=== PATIENT | male | born 1965 | race Caucasian/White ===

== ENCOUNTER 2018-09-10 10:58 | Inpatient (IN) | payer OTHER ==
[2018-09-10 11:23] VITALS: BMI 24.2
--- NOTE | 2018-09-10 14:07 | HP ---
CIWA Score - Admission Criteria [facility] Guidelines: Admission for Medically Managed Detox: Requires at least one of the followin. CIWA greater than 12 2. Seizures within the past 24 hours 3. Delirium tremens within the past 24 hours 4. Hallucinations within the past 24 hours 5. Acute intervention needed for co occurring medical disorder 6. Acute intervention needed for co occurring psychiatric disorder 7. Severe withdrawal that cannot be handled at a lower level of care (continued vomiting, continued diarrhea, abnormal vital signs) requiring intravenous medication and/or fluids 8. Admission ROS S - HPI Chief Complaint: " I want to recover this stuff" Allergies/Adverse Reactions: Allergies Allergy/AdvReac Type Severity Reaction Status Date / Time No Known Allergies Allergy Verified 09/10/18 11:56 History of Present Illness: 52 yo with hx of nicotine, cocaine and heroin dependence is here seeking cocaine rehabilitation. [facility] on methadone maintenance 50 mg qd , last medicated today. PMHX: HIV. Psych: depression, anxiety, bipolar. Denies suicidal / homicidal ideation. Denies hx of overdose, seizures or blackouts. Denies any significant period of sobriety . Exam Limitations: No Limitations - Ebola screening Have you traveled outside of the country in the last 21 days: No Have you had contact with anyone from an Ebola affected area: No Have you been sick,other than usual withdrawal symptoms: No Do you have a fever: No - Review of Systems Constitutional: Changes in sleep, Other (fatigue) EENT: reports: No Symptoms Reported Respiratory: reports: No Symptoms reported Cardiac: reports: No Symptoms Reported GI: reports: Indigestion : reports: No Symptoms Reported Musculoskeletal: reports: No Symptoms Reported Integumentary: reports: No Symptoms Reported Neuro: reports: No Symptoms reported Endocrine: reports: Increased Thirst Hematology: reports: No Symptoms Reported Psychiatric: reports: No Sypmtoms Reported, Orientated x3, Depressed Other Systems: Reviewed and Negative Patient History - Patient Medical History Hx Anemia: No Hx Asthma: No Hx Chronic Obstructive Pulmonary Disease (COPD): No Hx Cancer: No Hx Cardiac Disorders: No Hx Congestive Heart Failure: No Hx Hypertension: No Hx Hypercholesterolemia: No Hx Pacemaker: No HX Cerebrovascular Accident: No Hx Seizures: No Hx Dementia: No Hx Diabetes: No Hx Gastrointestinal Disorders: No Hx Liver Disease: No Hx Genitourinary Disorders: No Hx Sexually Transmitted Disorders: No Hx Renal Disease (ESRD): No Hx Thyroid Disease: No Hx Human Immunodeficiency Virus (HIV): Yes (dx 1993 Genvoya ) Hx Hepatitis C: No Hx Depression: Yes Hx Suicide Attempt: No Hx Bipolar Disorder: Yes Hx Schizophrenia: No - Patient Surgical History Past Surgical History: No - PPD History Previous Implant?: Yes Documented Results: Negative w/o proof Implanted On Prior [facility] Admission?: No PPD to be Administered?: Yes - Smoking Cessation Smoking history: Current every day smoker Have you smoked in the past 12 months: Yes Aproximately how many cigarettes per day: 6 Hx Chewing Tobacco Use: No Initiated information on smoking cessation: Yes 'Breaking Loose' booklet given: 09/10/18 - Substance & Tx. History Hx Alcohol Use: Yes Hx Substance Use: Yes Substance Use Type: Cocaine, Heroin Hx Substance Use Treatment: Yes (Last detox and rehab at [facility] four months ago ) - Substances Abused Heroin Route: Inhalation Frequency: Daily Amount used: 4-5 BAGS Age of first use: 17 Date of Last Use: 09/09/18 Cocaine Route: Inhalation Frequency: Daily Amount used: $20 Age of first use: 14 Date of Last Use: 09/09/18 Family Disease History - Family Disease History Family History: Denies Admission Physical Exam S - Vital Signs Vital Signs: Vital Signs - 24 hr 09/10/18 11:19 Temperature 98.8 F Pulse Rate 58 L Respiratory 18 Rate Blood Pressure 114/71 - Physical General Appearance: Yes: Appropriately Dressed, Thin, Anxious HEENTM: Yes: EOMI, Hearing grossly Normal, Normal ENT Inspection, Normocephalic , Normal Voice, ENRICO, Pharynx Normal, Tm's normal Respiratory: Yes: Within Normal Limits Neck: Yes: Within Normal Limits Breast: Yes: Breast Exam Deferred Cardiology: Yes: Regular Rhythm, Regular Rate Abdominal: Yes: Normal Bowel Sounds, Non Tender, Flat, Soft Genitourinary: Yes: Within Normal Limits Back: Yes: Normal Inspection Musculoskeletal: Yes: full range of Motion, Gait Steady, Pelvis Stable Extremities: Yes: Normal Capillary Refill, Normal Inspection, Normal Range of Motion, Non-Tender Neurological: Yes: college intern II-XII NML intact, Fully Oriented, Alert, Motor Strength 5/5, Depressed Affect Integumentary: Yes: Normal Color, Dry, Warm Lymphatic: Yes: Within Normal Limits - Diagnostic (1) Cocaine dependence Current Visit: Yes Status: Acute Qualifiers: Substance use status: uncomplicated Qualified Code(s): F14.20 - Cocaine dependence, uncomplicated (2) HIV (human immunodeficiency virus infection) Current Visit: Yes Status: Chronic (3) Opioid dependence on agonist therapy Current Visit: Yes Status: Acute [facility] qd, dose pending verification [facility] Breath Alcohol Content Breath Alcohol Content: 0 Urine Drug Screen - Results Drug Screen Negative: No Urine Drug Screen Results: INNA-Cocaine, OPI-Opiates, MTD-Methadone, FEN-Fentanyl Inpatient Rehab Admission - Rehab Decision to Admit Inpatient rehab admission?: Yes - Initial Determination Are CD services needed?: Yes Free of communicable disease: Yes Not in need of hospitalization: Yes - Rehab Admission Criteria Previous failed treatment: Yes Poor recovery environment: Yes Comorbidities: Yes Lacks judgement: Yes Patient is meeting Inpatient Rehab admission criteria:: Yes
[2018-09-10] MEDS ORDERED: MAGNESIUM CITRATE 300 ML BOTTLE PO PRN (14:08)
[2018-09-10] MEDS ORDERED: MAG HYDROX/AL HYDROX/SIMETH 30 ML UNIT-DOSE CUP PO PRN (14:08)
[2018-09-10] MEDS ORDERED: hydrOXYzine PAMOATE 25 MG CAPSULE (FP) PO PRN (14:08)
[2018-09-10] MEDS ORDERED: MAGNESIUM HYDROX 2400MG/30ML ORAL SUSPENSION 30 ML CUP PO PRN (14:08)
[2018-09-10] MEDS ORDERED: guaiFENesin 200 MG/10 ML 10 ML UNIT-DOSE CUPS PO PRN (14:08)
[2018-09-10] MEDS ORDERED: MENTHOL/PHENOL 1 EACH UD MM PRN (14:08)
[2018-09-10] MEDS ORDERED: LOPERAMIDE HCL 2 MG CAPSULE PO PRN (14:08)
[2018-09-10] MEDS ORDERED: ACETAMINOPHEN 325 MG TABLET (FP) PO PRN (14:08)
[2018-09-10] MEDS ORDERED: P-EPHED 60MG/TRIPROLIDI 2.5MG TABLET PO PRN (14:08)
[2018-09-10] MEDS ORDERED: TUBERCULIN PPD 5 TU/0.1ML VIAL ID ONE (16:51)
[2018-09-10] MEDS: NICOTINE POLACRILEX 2 MG GUM BUC PRN (19:04)
[2018-09-10] MEDS: THIAMINE HCL 100 MG TABLET (FP) PO SCH (21:28)
[2018-09-10] MEDS: MELATONIN 5 MG TABLETS PO PRN (21:29)
[2018-09-11 01:46] LABS: URINE APPEARANCE SLCLOUDY; URINE BILIRUBIN NEGATIVE (<2.0 mg/dL); URINE COLOR YELLOW; URINE GLUCOSE (UA) NEGATIVE (NEGATIVE); URINE KETONE NEGATIVE (NEGATIVE); URINE LEUK ESTERASE 3+ (NEGATIVE); URINE NITRITE NEGATIVE (NEGATIVE); URINE PROTEIN NEGATIVE (NEGATIVE); URINE UROBILINOGEN NEGATIVE mg/dL (0.2-1.0)
[2018-09-11 01:54] LABS: EPI CELLS MANY /HPF (FEW); URINE MUCUS RARE
[2018-09-11] MEDS: NICOTINE POLACRILEX 2 MG GUM BUC PRN ×5 (06:58→22:07)
[2018-09-11] MEDS ORDERED: METHADONE HCL 10 MG TABLET PO SCH (07:45)
[2018-09-11] MEDS ORDERED: METHADONE HCL 10 MG TABLET ONE (07:48)
[2018-09-11] MEDS ORDERED: METHADONE HCL 40 MG DISPERSABLE TABLET ONE (07:49)
[2018-09-11] MEDS: METHADONE 40 MG, METHADONE 10 MG PO SCH (08:00)
--- NOTE | 2018-09-11 08:45 | CONSULT ---
[facility] Psychiatric Consult - Data Date of interview: 09/11/18 Admission source: [facility] Identifying data: Patient is a 52 year old divorce male, father of three, unemployed, domiciled and is supported by [facility]. This is patient's first admission to detox at [facility]. Patient admitted to for cocaine dependence. Substance Abuse History: Smoking Cessation. Smoking history: Current every day smoker. Have you smoked in the past 12 months: Yes. Aproximately how many cigarettes per day: 6. Hx Chewing Tobacco Use: No. Initiated information on smoking cessation: Yes. 'Breaking Loose' booklet given: 09/10/18. - Substance & Tx. History. Hx Alcohol Use: Yes. Hx Substance Use: Yes. Substance Use Type : Cocaine, Heroin. Hx Substance Use Treatment: Yes (Last detox and rehab at [facility] four months ago ). - Substances Abused. Heroin. Route: Inhalation. Frequency: Daily. Amount used: 4-5 BAGS. Age of first use: 17. Date of Last Use: 09/09/18. Cocaine. Route: Inhalation. Frequency: Daily. Amount used: $20. Age of first use: 14 Medical History: HIV Psychiatric History: Patient's first psychiatric contact was in 2014 to address depression secondary to the of his who in 1999. He reports having difficulty greiving throughout the years and thought it was best he saw a psychiatrist. Mr. Delgado was prescribed an antidepressant medication but discontinued treatment after one year. Patient denies current outpatient psychiatric care, h/o psychiatric hosipitalizations and suicide attempt. Mr. Delgado is currently in the methadone program at [facility] and is on 50mg of methadone maintenance. At present patient is tearful. He reports amotivation , hopelessness, difficulty concentrating, and insomnia. Patient denies thoughts or urges to hurt self others. No psychosis noted. Physical/Sexual Abuse/Trauma History: denies. Mental Status Exam - Mental Status Exam Alert and Oriented to: Time, Place, Person Cognitive Function: Good Patient Appearance: Well Groomed Mood: Sad Affect: Mood Congruent Patient Behavior: Crying (Tearful), Appropriate, Cooperative Speech Pattern: Appropriate Voice Loudness: Normal Thought Process: Intact, Goal Oriented Thought Disorder: Not Present Hallucinations: Denies Suicidal Ideation: Denies Homicidal Ideation: Denies Insight/Judgement: Poor Sleep: Poorly Appetite: Fair Muscle strength/Tone: Normal Gait/Station: Normal Psychiatric Findings - Problem List ([place] 1, 2,3) (1) Depressive disorder Current Visit: Yes Status: Acute (2) Cocaine dependence Current Visit: Yes Status: Acute Qualifiers: Substance use status: uncomplicated Qualified Code(s): F14.20 - Cocaine dependence, uncomplicated (3) Opioid dependence on agonist therapy Current Visit: Yes Status: Acute Comment: [facility] on methadone mainace 50 mg qd, dose pending verification (4) Substance-induced sleep disorder Current Visit: Yes Status: Acute - Initial Treatment Plan Initial Treatment Plan: Psychoeducation provided. Detoxification in progress. Will initiate mirtazapine 15mg qhs. Benefits and side effects discussed. Verbal consent given.
[2018-09-11] MEDS: PRENATAL VITAMINS W/ FOLIC ACID TABLET (FP) PO SCH (10:14)
[2018-09-11] MEDS: NICOTINE 14 MG/24 HOURS TOPICAL PATCH TD SCH (10:14)
[2018-09-11 10:28] LABS: HEMATOCRIT 38.1 % (35.4-49); HEMOGLOBIN 12.8 GM/dL (11.7-16.9); MCH 28.4 pg (25.7-33.7); MCHC 33.6 g/dl (32.0-35.9); MEAN CELL VOLUME 84.6 fl (80-96); MEAN PLT VOLUME 8.8 fl (7.5-11.1); PLATELET COUNT 236 K/MM3 (134-434); RDW 15.2 % (11.9-15.9); WHITE BLOOD COUNT 8.2 K/mm3 (4.0-10.0)
[2018-09-11 10:30] LABS: ALBUMIN 3.7 g/dl (3.4-5.0); ALK PHOS 74 U/L (45-117); ANION GAP 3 MMOL/L (8-16); BILIRUBIN,TOTAL 0.3 mg/dL (0.2-1); BLOOD UREA NITROGEN 16 mg/dL (7-18); CALCIUM 8.6 mg/dL (8.5-10.1); CHLORIDE 107 mmol/L (98-107); CO2 29 mmol/L (21-32); CREATININE 0.9 mg/dL (0.55-1.3); GLUCOSE,RANDOM 80 mg/dL (74-106); POTASSIUM 4.5 mmol/L (3.5-5.1); SGOT/AST 19 U/L (15-37); SGPT/ALT 21 U/L (13-61); SODIUM 139 mmol/L (136-145); TOT PROT 7.3 g/dl (6.4-8.2)
[2018-09-11] MEDS: THIAMINE HCL 100 MG TABLET (FP) PO SCH (21:26)
[2018-09-11] MEDS: MIRTAZAPINE 15 MG TABLET (FP) PO SCH (21:26)
[2018-09-11] MEDS: MELATONIN 5 MG TABLETS PO PRN (21:27)
[2018-09-12] MEDS ORDERED: METHADONE HCL 10 MG TABLET ONE (04:01)
[2018-09-12] MEDS ORDERED: METHADONE HCL 40 MG DISPERSABLE TABLET ONE (04:02)
[2018-09-12] MEDS: METHADONE 40 MG, METHADONE 10 MG PO SCH (06:39)
[2018-09-12] MEDS: NICOTINE POLACRILEX 2 MG GUM BUC PRN ×5 (06:41→20:14)
[2018-09-12] MEDS: PRENATAL VITAMINS W/ FOLIC ACID TABLET (FP) PO SCH (10:14)
[2018-09-12] MEDS: NICOTINE 14 MG/24 HOURS TOPICAL PATCH TD SCH (10:14)
--- NOTE | 2018-09-12 12:46 | PN ---
[facility] Progress Note Note: PT STATES HE IS CURRENTLY ON GENVOYA AND COMPLIANT. PT'S LAST POSTED PICKED UP MEDICATION FROM HIS HOME [facility]Z PHARMACY WAS 08/19/18. PT REPORTS HE FORGOT TO TAKE THE BOTTLE WITH HIM WHEN COMING INTO ADMISSION AND WOULD LIKE TO CONTINUE. PT WILL NOT NEED COURTESY RX AT DISCHARGE. WILL FOLLOW UP WITH PCP/REFILLS AT HIS PHARMACY. ALERT O X 3. Vital Signs - 24 hr 09/12/18 09/12/18 03:30 06:54 Temperature 97.6 F Pulse Rate 60 Respiratory 18 17 Rate Blood Pressure 109/73 Laboratory Tests 09/10/18 09/11/18 09/11/18 22:30 06:00 06:00 WBC 8.2 RBC 4.50 Hgb 12.8 Hct 38.1 MCV 84.6 MCH 28.4 MCHC 33.6 RDW 15.2 Plt Count 236 MPV 8.8 Sodium 139 Potassium 4.5 Chloride 107 Carbon Dioxide 29 Anion Gap 3 L BUN 16 Creatinine 0.9 Creat Clearance w eGFR > 60 Random Glucose 80 Calcium 8.6 Total Bilirubin 0.3 AST 19 ALT 21 Alkaline Phosphatase 74 Total Protein 7.3 Albumin 3.7 Urine Color Yellow Urine Appearance Slcloudy Urine pH 6.0 Ur Specific [place] 1.026 Urine Protein Negative Urine Glucose (UA) Negative Urine Ketones Negative Urine Blood Negative Urine Nitrite Negative Urine Bilirubin Negative Urine Urobilinogen Negative Ur Leukocyte Esterase 3+ H Urine WBC (Auto) 131 Urine RBC (Auto) 4 Ur Epithelial Cells Many Urine Mucus Rare RPR Titer 09/11/18 06:00 WBC RBC Hgb Hct MCV MCH MCHC RDW Plt Count MPV Sodium Potassium Chloride Carbon Dioxide Anion Gap BUN Creatinine Creat Clearance w eGFR Random Glucose Calcium Total Bilirubin AST ALT Alkaline Phosphatase Total Protein Albumin Urine Color Urine Appearance Urine pH Ur Specific [place] Urine Protein Urine Glucose (UA) Urine Ketones Urine Blood Urine Nitrite Urine Bilirubin Urine Urobilinogen Ur Leukocyte Esterase Urine WBC (Auto) Urine RBC (Auto) Ur Epithelial Cells Urine Mucus RPR Titer Nonreactive UA NOTED. PT ASYMPTOMATIC PLAN:REPEAT UA AND UC R/O UTI INCREASE PO FLUIDS
[2018-09-12 20:31] LABS: URINE APPEARANCE SLCLOUDY; URINE BILIRUBIN NEGATIVE (<2.0 mg/dL); URINE COLOR YELLOW; URINE GLUCOSE (UA) NEGATIVE (NEGATIVE); URINE KETONE NEGATIVE (NEGATIVE); URINE LEUK ESTERASE 3+ (NEGATIVE); URINE NITRITE NEGATIVE (NEGATIVE); URINE PROTEIN NEGATIVE (NEGATIVE); URINE UROBILINOGEN NEGATIVE mg/dL (0.2-1.0)
[2018-09-12 20:51] LABS: URINE MUCUS RARE
[2018-09-12] MEDS: MIRTAZAPINE 15 MG TABLET (FP) PO SCH (21:56)
[2018-09-12] MEDS: THIAMINE HCL 100 MG TABLET (FP) PO SCH (21:56)
[2018-09-12] MEDS: ELVITEG/COB/EMTRI/TENOF (GENVOYA) TABLET (NF) PO SCH (21:57)
[2018-09-13] MEDS ORDERED: METHADONE HCL 10 MG TABLET ONE (04:36)
[2018-09-13] MEDS ORDERED: METHADONE HCL 40 MG DISPERSABLE TABLET ONE (04:36)
[2018-09-13] MEDS: METHADONE 40 MG, METHADONE 10 MG PO SCH (06:18)
[2018-09-13] MEDS: NICOTINE POLACRILEX 2 MG GUM BUC PRN ×5 (06:19→20:25)
[2018-09-13] MEDS: PRENATAL VITAMINS W/ FOLIC ACID TABLET (FP) PO SCH (10:11)
[2018-09-13] MEDS: NICOTINE 14 MG/24 HOURS TOPICAL PATCH TD SCH (10:11)
[2018-09-13] MEDS: ELVITEG/COB/EMTRI/TENOF (GENVOYA) TABLET (NF) PO SCH (21:36)
[2018-09-13] MEDS: THIAMINE HCL 100 MG TABLET (FP) PO SCH (21:36)
[2018-09-13] MEDS: MIRTAZAPINE 15 MG TABLET (FP) PO SCH (21:36)
[2018-09-14] MEDS ORDERED: METHADONE HCL 10 MG TABLET ONE (04:10)
[2018-09-14] MEDS ORDERED: METHADONE HCL 40 MG DISPERSABLE TABLET ONE (04:10)
[2018-09-14] MEDS: NICOTINE POLACRILEX 2 MG GUM BUC PRN ×4 (06:11→21:29)
[2018-09-14] MEDS: METHADONE 40 MG, METHADONE 10 MG PO SCH (06:12)
[2018-09-14] MEDS: PRENATAL VITAMINS W/ FOLIC ACID TABLET (FP) PO SCH (10:34)
[2018-09-14] MEDS: NICOTINE 14 MG/24 HOURS TOPICAL PATCH TD SCH (10:34)
[2018-09-14] MEDS: MIRTAZAPINE 15 MG TABLET (FP) PO SCH (21:29)
[2018-09-14] MEDS: ELVITEG/COB/EMTRI/TENOF (GENVOYA) TABLET (NF) PO SCH (21:29)
[2018-09-14] MEDS: THIAMINE HCL 100 MG TABLET (FP) PO SCH (21:29)
[2018-09-15] MEDS ORDERED: METHADONE HCL 10 MG TABLET ONE (03:19)
[2018-09-15] MEDS ORDERED: METHADONE HCL 40 MG DISPERSABLE TABLET ONE (03:19)
[2018-09-15] MEDS: METHADONE 40 MG, METHADONE 10 MG PO SCH (06:22)
[2018-09-15] MEDS: NICOTINE POLACRILEX 2 MG GUM BUC PRN ×3 (06:24→17:25)
[2018-09-15] MEDS: NICOTINE 14 MG/24 HOURS TOPICAL PATCH TD SCH (10:24)
[2018-09-15] MEDS: PRENATAL VITAMINS W/ FOLIC ACID TABLET (FP) PO SCH (10:25)
--- NOTE | 2018-09-15 11:42 | PN ---
[facility] Progress Note Note: NURSE NICOLE REPORTS TO ALTERNATIVE ENERGY ENGINEER THAT PT IS REQUESTING FOR PSYCH RE:EVAL FOR DEPRESSION/ANGER. DENIED S/H/I. Vital Signs (72 hours) 09/13/18 09/13/18 09/13/18 00:30 03:30 06:56 Temperature 97.6 F Pulse Rate 59 L Respiratory 18 18 17 Rate Blood Pressure 96/66 09/14/18 09/14/18 09/14/18 00:30 03:30 06:54 Temperature 97.9 F Pulse Rate 69 Respiratory 18 18 18 Rate Blood Pressure 106/72 09/15/18 09/15/18 09/15/18 00:30 03:30 07:11 Temperature 97.5 F L Pulse Rate 60 Respiratory 18 18 18 Rate Blood Pressure 127/71 Laboratory Tests 09/10/18 09/11/18 09/11/18 22:30 06:00 06:00 WBC 8.2 RBC 4.50 Hgb 12.8 Hct 38.1 MCV 84.6 MCH 28.4 MCHC 33.6 RDW 15.2 Plt Count 236 MPV 8.8 Sodium 139 Potassium 4.5 Chloride 107 Carbon Dioxide 29 Anion Gap 3 L BUN 16 Creatinine 0.9 Creat Clearance w eGFR > 60 Random Glucose 80 Calcium 8.6 Total Bilirubin 0.3 AST 19 ALT 21 Alkaline Phosphatase 74 Total Protein 7.3 Albumin 3.7 Urine Color Yellow Urine Appearance Slcloudy Urine pH 6.0 Ur Specific [place] 1.026 Urine Protein Negative Urine Glucose (UA) Negative Urine Ketones Negative Urine Blood Negative Urine Nitrite Negative Urine Bilirubin Negative Urine Urobilinogen Negative Ur Leukocyte Esterase 3+ H Urine WBC (Auto) 131 Urine RBC (Auto) 4 Ur Epithelial Cells Many Urine Mucus Rare RPR Titer 09/11/18 09/12/18 06:00 19:11 WBC RBC Hgb Hct MCV MCH MCHC RDW Plt Count MPV Sodium Potassium Chloride Carbon Dioxide Anion Gap BUN Creatinine Creat Clearance w eGFR Random Glucose Calcium Total Bilirubin AST ALT Alkaline Phosphatase Total Protein Albumin Urine Color Yellow Urine Appearance Slcloudy Urine pH 6.0 Ur Specific [place] 1.019 Urine Protein Negative Urine Glucose (UA) Negative Urine Ketones Negative Urine Blood Negative Urine Nitrite Negative Urine Bilirubin Negative Urine Urobilinogen Negative Ur Leukocyte Esterase 3+ H Urine WBC (Auto) 29 Urine RBC (Auto) 1 Ur Epithelial Cells Urine Mucus Rare RPR Titer Nonreactive PLAN:REFER FOR PSYCH RE:EVAL TODAY.
--- NOTE | 2018-09-15 13:02 | PN ---
Psychiatric Progress Note Vital Signs: Vital Signs Period Temp Pulse Resp BP Sys/Devi Pulse Ox Last 24 Hr 97.5 F 60 18-18 127/71 Date of Session: 09/15/18 Chief Complaint:: Insomnia HPI: Patient with history of Depressive Disorder, Opioid an cocaine use on methadone was admitted to this facility on 09/11/18 for rehabilitation ROS: HIV Current Medications: Active Medications Generic Name Dose Route Start Last Admin Trade Name Freq PRN Reason Stop Dose Admin Acetaminophen 650 mg 09/10/18 14:08 Tylenol - PO Q4H PRN FEVER Al Hydroxide/Mg Hydroxide 30 ml 09/10/18 14:08 Mylanta Oral Suspension - PO Q6H PRN DYSPEPSIA Elvitegravir/Cobicis/Emtricit/Tenof 1 tab 09/12/18 22:00 09/14/18 21:29 Genvoya (Non-Formulary) PO 1 tab HS MAI Administration Eucalyptus/Menthol/Phenol/Sorbitol 1 each 09/10/18 14:08 Cepastat Lozenge - MM Q4H PRN SORE THROAT Guaifenesin 10 ml 09/10/18 14:08 Robitussin - PO Q6H PRN COUGH Hydroxyzine Pamoate 25 mg 09/10/18 14:08 Vistaril - PO Q4H PRN AGITATION Ibuprofen 400 mg 09/10/18 14:08 Motrin - PO Q6H PRN Pain level 4-6 Loperamide HCl 4 mg 09/10/18 14:08 Imodium - PO Q6H PRN DIARRHEA Magnesium Citrate 300 ml 09/10/18 14:08 Citroma - PO Q48H PRN CONSTIPATION Magnesium Hydroxide 30 ml 09/10/18 14:08 Milk Of Magnesia - PO DAILY PRN CONSTIPATION Melatonin 5 mg 09/10/18 22:00 09/11/18 21:27 Melatonin PO 5 mg HS PRN Administration INSOMNIA Methadone HCl 40 mg/ Methadone 50 mg 09/16/18 06:00 HCl 10 mg PO 09/23/18 05:59 DAILY@0600 MAI Mirtazapine 30 mg 09/15/18 22:00 Remeron - PO HS MAI Nicotine 14 mg 09/11/18 10:00 09/15/18 10:24 Nicoderm Patch - TD 14 mg DAILY MAI Administration Nicotine Polacrilex 2 mg 09/10/18 14:08 09/15/18 10:26 Nicorette Gum - BUC 2 mg Q2H PRN Administration NICOTINE REPLACEMENT RX Multivit/Folic Acid/Iron 1 tab 09/11/18 10:00 09/15/18 10:25 Vitamins ([facility]) - PO 1 tab DAILY MAI Administration Pseudoephedrine/Triprolidine 1 combo 09/10/18 14:08 Actifed - PO TID PRN NASAL CONGESTION Thiamine HCl 100 mg 09/10/18 22:00 09/14/18 21:29 Vitamin B1 - PO 100 mg HS MAI Administration Current Side Effect: No Lab tests ordered: Yes Lab tests reviewed: Yes Provider note:: Patient reports sleeping poorly despite taking Remeron 15 mg po HS. Requests to increased Remeron dosage to 30 mg. Patient advised to ask nursing staff for Melatonin if needed Total face to face time:: 15 Mental Status Exam - Mental Status Exam Alert and Oriented to: Time, Place, Person Cognitive Function: Fair Patient Appearance: Well Groomed Mood: Hopeful, Euthymic Patient Behavior: Cooperative Speech Pattern: Clear Voice Loudness: Normal Thought Process: Intact, Goal Oriented Thought Disorder: Not Present Hallucinations: Denies Suicidal Ideation: Denies Homicidal Ideation: Denies Insight/Judgement: Fair Sleep: Poorly Appetite: Good Muscle strength/Tone: Normal Gait/Station: Normal Psychiatric Treatment Plan - Problem List (1) Depressive disorder Current Visit: Yes (2) Substance-induced sleep disorder Current Visit: Yes (3) Cocaine dependence Current Visit: Yes Qualifiers: Substance use status: uncomplicated Qualified Code(s): F14.20 - Cocaine dependence, uncomplicated (4) Opioid dependence on agonist therapy Current Visit: Yes Comment: [facility] on methadone mainace 50 mg qd, dose pending verification (5) Nicotine dependence Current Visit: Yes (6) HIV (human immunodeficiency virus infection) Current Visit: Yes Initial treatment plan: 1) Discontinue Remeron as currently ordered. 2) Start Remeron 30 mg po HS. 3) Continue inpatient rehabilitation
[2018-09-15] MEDS: MIRTAZAPINE 30 MG TABLET (FP) PO SCH (21:29)
[2018-09-15] MEDS: THIAMINE HCL 100 MG TABLET (FP) PO SCH (21:30)
[2018-09-15] MEDS: MELATONIN 5 MG TABLETS PO PRN (21:30)
[2018-09-15] MEDS: ELVITEG/COB/EMTRI/TENOF (GENVOYA) TABLET (NF) PO SCH (21:30)
[2018-09-15] MEDS: IBUPROFEN 400 MG TABLET (FP) PO PRN (23:50)
[2018-09-16] MEDS: METHADONE 40 MG, METHADONE 10 MG PO SCH (06:20)
[2018-09-16] MEDS ORDERED: METHADONE HCL 10 MG TABLET ONE (06:20)
[2018-09-16] MEDS ORDERED: METHADONE HCL 40 MG DISPERSABLE TABLET ONE (06:20)
[2018-09-16] MEDS: NICOTINE POLACRILEX 2 MG GUM BUC PRN ×3 (06:22→21:38)
[2018-09-16] MEDS: NICOTINE 14 MG/24 HOURS TOPICAL PATCH TD SCH (10:38)
[2018-09-16] MEDS: PRENATAL VITAMINS W/ FOLIC ACID TABLET (FP) PO SCH (10:38)
[2018-09-16] MEDS: IBUPROFEN 400 MG TABLET (FP) PO PRN ×2 (14:26→21:38)
[2018-09-16] MEDS: THIAMINE HCL 100 MG TABLET (FP) PO SCH (21:36)
[2018-09-16] MEDS: MIRTAZAPINE 30 MG TABLET (FP) PO SCH (21:36)
[2018-09-16] MEDS: ELVITEG/COB/EMTRI/TENOF (GENVOYA) TABLET (NF) PO SCH (21:36)
[2018-09-16] MEDS: MELATONIN 5 MG TABLETS PO PRN (21:37)
[2018-09-17] MEDS ORDERED: METHADONE HCL 10 MG TABLET ONE (03:18)
[2018-09-17] MEDS ORDERED: METHADONE HCL 40 MG DISPERSABLE TABLET ONE (03:18)
[2018-09-17] MEDS: METHADONE 40 MG, METHADONE 10 MG PO SCH (06:06)
[2018-09-17] MEDS: NICOTINE POLACRILEX 2 MG GUM BUC PRN ×5 (06:07→21:29)
[2018-09-17] MEDS: NICOTINE 14 MG/24 HOURS TOPICAL PATCH TD SCH (10:24)
[2018-09-17] MEDS: PRENATAL VITAMINS W/ FOLIC ACID TABLET (FP) PO SCH (10:24)
[2018-09-17] MEDS: IBUPROFEN 400 MG TABLET (FP) PO PRN ×2 (10:25→22:18)
[2018-09-17] MEDS: MIRTAZAPINE 30 MG TABLET (FP) PO SCH (21:28)
[2018-09-17] MEDS: THIAMINE HCL 100 MG TABLET (FP) PO SCH (21:28)
[2018-09-17] MEDS: MELATONIN 5 MG TABLETS PO PRN (21:29)
[2018-09-17] MEDS: ELVITEG/COB/EMTRI/TENOF (GENVOYA) TABLET (NF) PO SCH (21:29)
[2018-09-18] MEDS ORDERED: METHADONE HCL 10 MG TABLET ONE (04:15)
[2018-09-18] MEDS ORDERED: METHADONE HCL 40 MG DISPERSABLE TABLET ONE (04:16)
[2018-09-18] MEDS: METHADONE 40 MG, METHADONE 10 MG PO SCH (06:12)
[2018-09-18] MEDS: NICOTINE POLACRILEX 2 MG GUM BUC PRN ×3 (06:12→21:29)
[2018-09-18] MEDS: NICOTINE 14 MG/24 HOURS TOPICAL PATCH TD SCH (10:16)
[2018-09-18] MEDS: PRENATAL VITAMINS W/ FOLIC ACID TABLET (FP) PO SCH (10:16)
[2018-09-18] MEDS: IBUPROFEN 400 MG TABLET (FP) PO PRN (15:04)
[2018-09-18] MEDS: THIAMINE HCL 100 MG TABLET (FP) PO SCH (21:28)
[2018-09-18] MEDS: MIRTAZAPINE 30 MG TABLET (FP) PO SCH (21:28)
[2018-09-18] MEDS: MELATONIN 5 MG TABLETS PO PRN (21:29)
[2018-09-18] MEDS: ELVITEG/COB/EMTRI/TENOF (GENVOYA) TABLET (NF) PO SCH (21:29)
[2018-09-19] MEDS ORDERED: METHADONE HCL 40 MG DISPERSABLE TABLET ONE (03:22)
[2018-09-19] MEDS ORDERED: METHADONE HCL 10 MG TABLET ONE (03:22)
[2018-09-19] MEDS: METHADONE 40 MG, METHADONE 10 MG PO SCH (06:30)
[2018-09-19] MEDS: NICOTINE POLACRILEX 2 MG GUM BUC PRN ×5 (06:30→21:32)
[2018-09-19] MEDS: PRENATAL VITAMINS W/ FOLIC ACID TABLET (FP) PO SCH (10:07)
[2018-09-19] MEDS: NICOTINE 14 MG/24 HOURS TOPICAL PATCH TD SCH (10:07)
[2018-09-19] MEDS: THIAMINE HCL 100 MG TABLET (FP) PO SCH (21:31)
[2018-09-19] MEDS: MIRTAZAPINE 30 MG TABLET (FP) PO SCH (21:31)
[2018-09-19] MEDS: MELATONIN 5 MG TABLETS PO PRN (21:32)
[2018-09-19] MEDS: ELVITEG/COB/EMTRI/TENOF (GENVOYA) TABLET (NF) PO SCH (21:32)
[2018-09-20] MEDS ORDERED: METHADONE HCL 40 MG DISPERSABLE TABLET ONE (05:18)
[2018-09-20] MEDS ORDERED: METHADONE HCL 10 MG TABLET ONE (05:18)
[2018-09-20] MEDS: NICOTINE POLACRILEX 2 MG GUM BUC PRN ×5 (05:50→21:31)
[2018-09-20] MEDS: METHADONE 40 MG, METHADONE 10 MG PO SCH (06:04)
[2018-09-20] MEDS: PRENATAL VITAMINS W/ FOLIC ACID TABLET (FP) PO SCH (10:20)
[2018-09-20] MEDS: NICOTINE 14 MG/24 HOURS TOPICAL PATCH TD SCH (10:21)
[2018-09-20] MEDS: THIAMINE HCL 100 MG TABLET (FP) PO SCH (21:29)
[2018-09-20] MEDS: MIRTAZAPINE 30 MG TABLET (FP) PO SCH (21:29)
[2018-09-20] MEDS: ELVITEG/COB/EMTRI/TENOF (GENVOYA) TABLET (NF) PO SCH (21:30)
[2018-09-20] MEDS: MELATONIN 5 MG TABLETS PO PRN (21:30)
[2018-09-21] MEDS ORDERED: METHADONE HCL 10 MG TABLET ONE (05:54)
[2018-09-21] MEDS ORDERED: METHADONE HCL 40 MG DISPERSABLE TABLET ONE (05:54)
[2018-09-21] MEDS: METHADONE 40 MG, METHADONE 10 MG PO SCH (06:09)
[2018-09-21] MEDS: NICOTINE POLACRILEX 2 MG GUM BUC PRN ×4 (06:24→21:33)
[2018-09-21] MEDS: PRENATAL VITAMINS W/ FOLIC ACID TABLET (FP) PO SCH (10:07)
[2018-09-21] MEDS: NICOTINE 14 MG/24 HOURS TOPICAL PATCH TD SCH (10:07)
[2018-09-21] MEDS: MELATONIN 5 MG TABLETS PO PRN (21:32)
[2018-09-21] MEDS: MIRTAZAPINE 30 MG TABLET (FP) PO SCH (21:32)
[2018-09-21] MEDS: THIAMINE HCL 100 MG TABLET (FP) PO SCH (21:32)
[2018-09-21] MEDS: ELVITEG/COB/EMTRI/TENOF (GENVOYA) TABLET (NF) PO SCH (21:32)
[2018-09-22] MEDS ORDERED: METHADONE HCL 40 MG DISPERSABLE TABLET ONE (03:59)
[2018-09-22] MEDS ORDERED: METHADONE HCL 10 MG TABLET ONE (03:59)
[2018-09-22] MEDS: METHADONE 40 MG, METHADONE 10 MG PO SCH (06:29)
[2018-09-22] MEDS: NICOTINE POLACRILEX 2 MG GUM BUC PRN ×5 (06:30→20:54)
[2018-09-22] MEDS: NICOTINE 14 MG/24 HOURS TOPICAL PATCH TD SCH (10:33)
[2018-09-22] MEDS: PRENATAL VITAMINS W/ FOLIC ACID TABLET (FP) PO SCH (10:33)
[2018-09-22] MEDS: MIRTAZAPINE 30 MG TABLET (FP) PO SCH (21:43)
[2018-09-22] MEDS: THIAMINE HCL 100 MG TABLET (FP) PO SCH (21:43)
[2018-09-22] MEDS: ELVITEG/COB/EMTRI/TENOF (GENVOYA) TABLET (NF) PO SCH (21:44)
[2018-09-22] MEDS: MELATONIN 5 MG TABLETS PO PRN (21:44)
[2018-09-23] MEDS ORDERED: METHADONE HCL 10 MG TABLET ONE (06:15)
[2018-09-23] MEDS ORDERED: METHADONE HCL 40 MG DISPERSABLE TABLET ONE (06:15)
[2018-09-23] MEDS: NICOTINE POLACRILEX 2 MG GUM BUC PRN ×5 (06:15→21:27)
[2018-09-23] MEDS: METHADONE 40 MG, METHADONE 10 MG PO SCH (06:16)
[2018-09-23] MEDS: PRENATAL VITAMINS W/ FOLIC ACID TABLET (FP) PO SCH (10:13)
[2018-09-23] MEDS: NICOTINE 14 MG/24 HOURS TOPICAL PATCH TD SCH (10:13)
--- NOTE | 2018-09-23 17:24 | PN ---
S Progress Note Note: Patient is scheduled for discharge tomorrow. Script for 30 days supply of Remeron 30 mg po HS will be electronically transmitted to Pharmacy at [address] [place] [id number]
[2018-09-23] MEDS: MIRTAZAPINE 30 MG TABLET (FP) PO SCH (21:27)
[2018-09-23] MEDS: MELATONIN 5 MG TABLETS PO PRN (21:27)
[2018-09-23] MEDS: THIAMINE HCL 100 MG TABLET (FP) PO SCH (21:27)
[2018-09-23] MEDS: ELVITEG/COB/EMTRI/TENOF (GENVOYA) TABLET (NF) PO SCH (21:27)
[2018-09-24] MEDS ORDERED: METHADONE HCL 10 MG TABLET ONE (04:29)
[2018-09-24] MEDS ORDERED: METHADONE HCL 40 MG DISPERSABLE TABLET ONE (04:29)
[2018-09-24] MEDS: METHADONE 40 MG, METHADONE 10 MG PO SCH (06:10)
[2018-09-24] MEDS: NICOTINE POLACRILEX 2 MG GUM BUC PRN (06:12)
[2018-09-24 06:50] VITALS: BP 115/71; PULSE 61; TEMP 97.6
[2018-09-24] MEDS: PRENATAL VITAMINS W/ FOLIC ACID TABLET (FP) PO SCH (09:46)
[2018-09-24] MEDS: NICOTINE 14 MG/24 HOURS TOPICAL PATCH TD SCH (09:47)
--- NOTE | 2018-09-24 10:06 | PN ---
[facility] Progress Note Note: PT COMPLETED REHAB AND DISCHARGED TODAY. PT MET WITH HIS COUNSELOR AND HAS BEEN REFERRED TO [facility] ON [address] [place] [address] FOR CD AFTERCARE. PT REPORTS HE HAS A PMD SHONNA MONDRAGON AT [facility] ON [place], [place]. 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 ALERT O X 3. DENIES S/H/I. Home Medications Medication Instructions Recorded Elviteg/Cob/Emtri/Tenof Alafen 1 each PO HS 09/10/18 [Genvoya (Non-Formulary)] Methadone [Dolophine -] 50 mg PO DAILY 09/10/18 Mirtazapine [Remeron -] 30 mg PO HS #30 tablet 09/23/18 Vital Signs (72 hours) 09/22/18 09/22/18 09/22/18 00:30 03:30 07:45 Temperature 97.8 F Pulse Rate 75 Respiratory 18 18 18 Rate Blood Pressure 103/74 09/23/18 09/23/18 09/23/18 00:30 03:30 07:00 Temperature 97.7 F Pulse Rate 69 Respiratory 18 18 16 Rate Blood Pressure 126/84 09/24/18 09/24/18 09/24/18 00:30 03:30 06:49 Temperature 97.6 F Pulse Rate 61 Respiratory 18 18 16 Rate Blood Pressure 115/71 Laboratory Tests 09/10/18 09/11/18 09/11/18 22:30 06:00 06:00 WBC 8.2 RBC 4.50 Hgb 12.8 Hct 38.1 MCV 84.6 MCH 28.4 MCHC 33.6 RDW 15.2 Plt Count 236 MPV 8.8 Sodium 139 Potassium 4.5 Chloride 107 Carbon Dioxide 29 Anion Gap 3 L BUN 16 Creatinine 0.9 Creat Clearance w eGFR > 60 Random Glucose 80 Calcium 8.6 Total Bilirubin 0.3 AST 19 ALT 21 Alkaline Phosphatase 74 Total Protein 7.3 Albumin 3.7 Urine Color Yellow Urine Appearance Slcloudy Urine pH 6.0 Ur Specific [place] 1.026 Urine Protein Negative Urine Glucose (UA) Negative Urine Ketones Negative Urine Blood Negative Urine Nitrite Negative Urine Bilirubin Negative Urine Urobilinogen Negative Ur Leukocyte Esterase 3+ H Urine WBC (Auto) 131 Urine RBC (Auto) 4 Ur Epithelial Cells Many Urine Mucus Rare RPR Titer 09/11/18 09/12/18 06:00 19:11 WBC RBC Hgb Hct MCV MCH MCHC RDW Plt Count MPV Sodium Potassium Chloride Carbon Dioxide Anion Gap BUN Creatinine Creat Clearance w eGFR Random Glucose Calcium Total Bilirubin AST ALT Alkaline Phosphatase Total Protein Albumin Urine Color Yellow Urine Appearance Slcloudy Urine pH 6.0 Ur Specific [place] 1.019 Urine Protein Negative Urine Glucose (UA) Negative Urine Ketones Negative Urine Blood Negative Urine Nitrite Negative Urine Bilirubin Negative Urine Urobilinogen Negative Ur Leukocyte Esterase 3+ H Urine WBC (Auto) 29 Urine RBC (Auto) 1 Ur Epithelial Cells Urine Mucus Rare RPR Titer Nonreactive Microbiology 09/12/18 19:11 Urine - Urine Clean Catch Urine Culture - Final NO GROWTH OBTAINED NAD MEDICALLY STABLE PLAN:D/C PT TODAY FOLLOW UP WITH CD AFTERCARE RECOMMENDATION SCHEDULED. FOLLOW UP WITH PRIMARY CARE ABOVE. PT TO MAKE APPOINTMENT FOR MISSED DATE WHILE IN REHAB. FOLLOW UP WITH DENTAL APPOINTMENT AFTER DISCHARGE. All Active Problems Cocaine dependence (Chronic) HIV (human immunodeficiency virus infection) (Chronic) Opioid dependence on agonist therapy (Chronic) Nicotine dependence (Chronic)
== END 2018-09-24 10:45 | disposition home or self-care (01) | DRG 772 ==
LOC: YASAS 10:58 → Y5N 15:07
PROVIDERS: ADMIT Neuromusculoskeletal Medicine & OMM; ATTEND Neuromusculoskeletal Medicine & OMM
PROC: HZ42ZZZ Group Counseling for Substance Abuse Treatment, Cognitive-Behavioral (ICD-10-PCS; principal; 2018-09-10)
DX: F14.20 Cocaine dependence, uncomplicated (principal); F11.20 Opioid dependence, uncomplicated; F17.210 Nicotine dependence, cigarettes, uncomplicated; F32.9 Major depressive disorder, single episode, unspecified; F19.282 Other psychoactive substance dependence with psychoactive substance-induced sleep disorder; Z21 Asymptomatic human immunodeficiency virus [HIV] infection status
CPT/HCPCS: 36415; 80053; 81003; 81015; 85027; 86593; 87086

== ENCOUNTER 2021-02-08 13:45 | Inpatient (IN) | payer OTHER ==
[2021-02-08 16:02] VITALS: BMI 27.6
[2021-02-08] MEDS ORDERED: methaDONE HCL 10 MG TABLET (FOR DETOX USE ONLY) PO ONE (18:04)
[2021-02-08] MEDS ORDERED: NICOTINE 10 MG CARTRIDGE (INHALER) IH PRN (18:04)
[2021-02-08] MEDS ORDERED: MENTHOL/PHENOL 1 EACH UD MM PRN (18:04)
[2021-02-08] MEDS ORDERED: MAGNESIUM HYDROX 2400MG/30ML ORAL SUSPENSION 30 ML CUP PO PRN (18:04)
[2021-02-08] MEDS ORDERED: MAG HYDROX/AL HYDROX/SIMETH 30 ML UNIT-DOSE CUP PO PRN (18:04)
[2021-02-08] MEDS ORDERED: MAGNESIUM CITRATE 300 ML BOTTLE PO PRN (18:04)
[2021-02-08] MEDS ORDERED: METHOCARBAMOL 500 MG TABLET PO PRN (18:04)
[2021-02-08] MEDS ORDERED: diazePAM 5 MG TABLET PO ONE (18:04)
[2021-02-08] MEDS ORDERED: ACETAMINOPHEN 325 MG TABLET (FP) PO PRN ×2 (18:04)
[2021-02-08] MEDS ORDERED: ONDANSETRON *ODT* 4 MG TABLET SL PRN (18:04)
[2021-02-08] MEDS ORDERED: cloNIDine HCL 0.1 MG TABLET PO PRN (18:04)
[2021-02-08] MEDS ORDERED: BISMUTH SUBSALICYLATE 524 MG/30 ML PO PRN (18:04)
[2021-02-08] MEDS ORDERED: diazePAM 5 MG TABLET PO PRN (18:04)
[2021-02-08] MEDS ORDERED: methaDONE HCL 10 MG TABLET (FOR DETOX USE ONLY) ONE (19:42)
[2021-02-08] MEDS ORDERED: diazePAM 5 MG TABLET ONE ×2 (19:42→22:54)
[2021-02-08] MEDS: MELATONIN 5 MG TABLETS PO SCH (22:56)
[2021-02-08] MEDS: hydrOXYzine PAMOATE 25 MG CAPSULE (FP) PO SCH (22:56)
[2021-02-08] MEDS: THIAMINE HCL 100 MG TABLET (FP) PO SCH (22:56)
[2021-02-08] MEDS: diazePAM 5 MG TABLET PO SCH (22:57)
[2021-02-09] MEDS ORDERED: diazePAM 5 MG TABLET ONE ×2 (05:54→10:14)
[2021-02-09] MEDS ORDERED: hydrOXYzine PAMOATE 25 MG CAPSULE (FP) PO ONE ×2 (05:54→10:14)
[2021-02-09] MEDS: hydrOXYzine PAMOATE 25 MG CAPSULE (FP) PO SCH ×2 (05:55→10:18)
[2021-02-09] MEDS: diazePAM 5 MG TABLET PO SCH ×4 (05:55→22:41)
[2021-02-09] MEDS ORDERED: PRENATAL VITAMINS W/ FOLIC ACID TABLET (FP) PO SCH (10:00)
[2021-02-09] MEDS ORDERED: NICOTINE 21 MG/24 HOURS TOPICAL PATCH TD SCH (10:00)
[2021-02-09] MEDS ORDERED: methaDONE HCL 10 MG TABLET (FOR DETOX USE ONLY) ONE (10:14)
[2021-02-09 12:08] LABS: CALCIUM 8.5 mg/dL (8.5-10.1)
[2021-02-09 12:09] LABS: ALBUMIN 3.4 g/dl (3.4-5.0)
[2021-02-09 12:11] LABS: HEMATOCRIT 39.5 % (35.4-49); HEMOGLOBIN 13.3 GM/dL (11.7-16.9); MCH 27.2 pg (25.7-33.7); MCHC 33.6 g/dl (32.0-35.9); MEAN CELL VOLUME 81.2 fl (80-96); MEAN PLT VOLUME 8.3 fl (7.5-11.1); PLATELET COUNT 214 10^3/uL (134-434); RBC 4.87 M/mm3 (4.00-5.60); RDW 14.8 % (11.9-15.9); WHITE BLOOD COUNT 4.5 K/mm3 (4.0-10.0)
[2021-02-09 12:12] LABS: CREATININE 0.8 mg/dL (0.55-1.3)
[2021-02-09 12:14] LABS: BILIRUBIN,TOTAL 0.4 mg/dL (0.2-1); TOT PROT 7.3 g/dl (6.4-8.2)
[2021-02-09] MEDS ORDERED: hydrOXYzine PAMOATE 25 MG CAPSULE (FP) PO PRN (13:31)
[2021-02-09] MEDS: NICOTINE POLACRILEX 4 MG GUM BUC PRN ×4 (13:48→22:43)
[2021-02-09] MEDS: IBUPROFEN 400 MG TABLET (FP) PO PRN (20:57)
[2021-02-09] MEDS ORDERED: ELVITEG/COB/EMTRI/TENOF (GENVOYA) TABLET (NF) PO SCH (22:00)
[2021-02-09] MEDS: MELATONIN 5 MG TABLETS PO SCH (22:42)
[2021-02-09] MEDS: THIAMINE HCL 100 MG TABLET (FP) PO SCH (22:42)
[2021-02-10] MEDS: NICOTINE POLACRILEX 4 MG GUM BUC PRN (02:45)
[2021-02-10] MEDS ORDERED: diazePAM 5 MG TABLET PO SCH (06:00)
[2021-02-10] MEDS: IBUPROFEN 400 MG TABLET (FP) PO PRN (06:04)
[2021-02-10 08:53] VITALS: BP 130/71; PULSE 88; TEMP 97.7
[2021-02-10] MEDS ORDERED: methaDONE HCL 10 MG TABLET (FOR DETOX USE ONLY) PO ONE (10:00)
[2021-02-11] MEDS ORDERED: diazePAM 5 MG TABLET PO SCH (06:00)
[2021-02-12] MEDS ORDERED: diazePAM 5 MG TABLET PO ONE (06:00)
[2021-02-12] MEDS ORDERED: methaDONE HCL 10 MG TABLET (FOR DETOX USE ONLY) PO ONE (10:00)
== END 2021-02-10 10:48 | disposition left against medical advice (07) | DRG 770 ==
LOC: YASAS 13:45 → Y3N 02-09 10:28
PROVIDERS: ADMIT Allergy & Immunology; ATTEND Allergy & Immunology
PROC: HZ2ZZZZ Detoxification Services for Substance Abuse Treatment (ICD-10-PCS; principal; 2021-02-09)
DX: F10.230 Alcohol dependence with withdrawal, uncomplicated (principal); F11.23 Opioid dependence with withdrawal; F14.20 Cocaine dependence, uncomplicated; F17.210 Nicotine dependence, cigarettes, uncomplicated; F19.282 Other psychoactive substance dependence with psychoactive substance-induced sleep disorder; F19.24 Other psychoactive substance dependence with psychoactive substance-induced mood disorder; F32.9 Major depressive disorder, single episode, unspecified; Z21 Asymptomatic human immunodeficiency virus [HIV] infection status; M54.5 Low back pain; G89.29 Other chronic pain; Z86.19 Personal history of other infectious and parasitic diseases
CPT/HCPCS: 36415; 80053; 85027; 86593; 86780; 93005; 93010; C9803; U0003; U0005